=== PATIENT | male | born 1990 | race Caucasian/White ===

== ENCOUNTER → 2018-01-07 09:29 | Outpatient (CLI) | payer BC, SELFPAY | PROVIDERS: Family Provider Family Medicine; PCP Family Medicine; Visit Provider Emergency Medicine | DX: R07.9 Chest pain, unspecified (principal) | CPT/HCPCS: 93017 ==

== ENCOUNTER → 2018-09-23 13:31 | Outpatient (CLI) | payer BC, SELFPAY | PROVIDERS: PCP Family Medicine; Visit Provider Family Medicine | DX: G47.10 Hypersomnia, unspecified (principal); R06.83 Snoring; G47.30 Sleep apnea, unspecified | CPT/HCPCS: 95806 ==

== ENCOUNTER → 2019-06-26 07:40 | Outpatient (CLI) | payer BC, SELFPAY ==
--- NOTE | 2019-06-26 07:46 | US_ITS ---
PROCEDURE: US ABDOMEN LIMITED CLINICAL INDICATION: RUQ PAIN COMPARISON: No exams were available for comparison FINDINGS: PANCREAS: Unremarkable. No obvious mass or abnormal fluid collection. No ductal dilatation LIVER: No focal liver lesions demonstrated. Homogeneous echogenicity. No intrahepatic biliary ductal dilatation evident. There is appropriate direction of blood flow within a non dilated portal vein RIGHT KIDNEY: Unremarkable. Normal size and echogenicity. No hydronephrosis GALLBLADDER: No gallstones. There is questionably a small amount of sludge in the gallbladder. On some measurements the gallbladder wall appears mildly thickened measuring up to 4.9 millimeters. Radionuclide hepatobiliary imaging may be useful to further evaluate this patient. There is no pericholecystic fluid, or biliary dilatation. IMPRESSION: Small amount of sludge without stones. Mild gallbladder wall thickening. Dictated by: Edward Escalante 06/26/2019 08:41 Electronically signed by Edward Escalante in [place] 06/26/2019 08:41
== END ==
PROVIDERS: PCP Family Medicine; Visit Provider Family Medicine
DX: R10.11 Right upper quadrant pain (principal)
CPT/HCPCS: 76705

== ENCOUNTER → 2019-07-07 10:50 | Outpatient (CLI) | payer BC, SELFPAY ==
[2019-07-07 11:23] LABS: Basophils % 0.6 % (0.1-2.0); Eosinophils # 0.2 K/mm3 (0.0-0.4); Eosinophils % 3.6 % (0.1-12.0); Hematocrit 40.7 % (42.0-52.0); Hemoglobin 13.5 g/dL (14.1-18.0); Lymphocytes # 1.3 K/mm3 (0.7-4.5); Lymphocytes % 22.6 % (10-50); Mean Corpuscular HGB Conc 33.1 g/dL (31.8-35.4); Mean Corpuscular Hemoglobin 28.8 pg (27.0-31.2); Mean Corpuscular Volume 87.2 fl (80-94); Mean Platelet Volume 8.7 fl (7.4-10.4); Monocytes # 0.3 K/mm3 (0.1-1.0); Monocytes % 4.9 % (1.7-9.3); Neutrophils # 3.8 K/mm3 (1.8-7.8); Neutrophils % 68.3 % (37.0-80.0); Platelet Count 209 K/mm3 (142-424); Red Blood Count 4.67 M/mm3 (4.60-6.20); Red Cell Distribution Width 12.9 % (11.5-17.5); White Blood Count 5.6 K/mm3 (4.8-10.8)
[2019-07-07 12:13] LABS: Alanine Aminotransferase 19 U/L (12-78); Albumin/Globulin Ratio 1.5 (1.1-1.8); Alkaline Phosphatase 76 U/L (46-116); Amylase 45 U/L (25-115); Anion Gap 11.3 mEq/L (5-15); Aspartate Amino Transferase 12 U/L (15-37); Bilirubin,Total 0.4 mg/dL (0.2-1.0); Blood Urea Nitrogen 10 mg/dL (7-18); Calcium 8.9 mg/dL (8.5-10.1); Carbon Dioxide 30 mmol/L (21.0-32.0); Chloride 107 mmol/L (98-107); Creatinine,Serum 0.71 mg/dL (0.70-1.30); Estimated Glomerular Filt Rate 130 ml/min (>60); GFR (African American) 158 ML/MIN (>60); Globulin 2.7 gm/dl (1.3-3.2); Glucose 95 mg/dL (74-106); Lipase 199 u/L (73-393); Potassium 4.3 mmoL/L (3.5-5.1); Sodium 144 mmol/L (136-145); Total Protein,Serum 6.7 gm/dL (6.4-8.2)
== END ==
PROVIDERS: Visit Provider Surgery
DX: K82.9 Disease of gallbladder, unspecified (principal); K85.90 Acute pancreatitis without necrosis or infection, unspecified
CPT/HCPCS: 36415; 80053; 82150; 83690; 85025

== ENCOUNTER → 2019-08-06 10:29 | Outpatient (CLI) | payer BC, SELFPAY ==
[2019-08-06 11:08] LABS: Basophils # 0.1 K/mm3 (0-0.2); Basophils % 1.1 % (0.1-2.0); Eosinophils # 0.1 K/mm3 (0.0-0.4); Eosinophils % 2.2 % (0.1-12.0); Hematocrit 40.3 % (42.0-52.0); Hemoglobin 13.4 g/dL (14.1-18.0); Lymphocytes # 1.4 K/mm3 (0.7-4.5); Lymphocytes % 28.2 % (10-50); Mean Corpuscular HGB Conc 33.3 g/dL (31.8-35.4); Mean Corpuscular Hemoglobin 28.4 pg (27.0-31.2); Mean Corpuscular Volume 85.3 fl (80-94); Monocytes # 0.3 K/mm3 (0.1-1.0); Monocytes % 5.2 % (1.7-9.3); Neutrophils # 3.1 K/mm3 (1.8-7.8); Neutrophils % 63.4 % (37.0-80.0); Platelet Count 241 K/mm3 (142-424); Red Blood Count 4.73 M/mm3 (4.60-6.20); Red Cell Distribution Width 13.2 % (11.5-17.5)
[2019-08-06 13:15] LABS: Chloride 104 mmol/L (98-107); Potassium 4.1 mmoL/L (3.5-5.1); Sodium 140 mmol/L (136-145)
[2019-08-06 13:17] LABS: Alanine Aminotransferase 25 U/L (12-78); Aspartate Amino Transferase 23 U/L (17-59); Blood Urea Nitrogen 8 mg/dl (9-20); Estimated Glomerular Filt Rate 132 ml/min (>60); GFR (African American) 160 ML/MIN (>60)
[2019-08-06 13:18] LABS: Albumin Level 4.4 g/dl (3.5-5.0); Albumin/Globulin Ratio 1.8 (1.1-1.8); Alkaline Phosphatase 58 U/L (38-126); Anion Gap 12.1 mEq/L (5-15); Bilirubin,Total 0.8 mg/dl (0.2-1.3); Calcium 9.7 mg/dl (8.4-10.2); Carbon Dioxide 28 mmol/L (22.0-30.0); Globulin 2.5 g/dL (1.3-3.2); Glucose 97 mg/dl (74-100); Total Protein,Serum 6.9 g/dl (6.3-8.2)
[2019-08-06 14:06] LABS: C-Reactive Protein 1.3 mg/L (0-4)
[2019-08-08 10:30] LABS: Deamidated Gliadin Abs, IgA 7 units (0-19); Tissue Transglutaminase IgA Ab <2 U/mL (0-3); Tissue Transglutaminase IgG Ab <2 U/mL (0-5)
[2019-08-08 10:31] LABS: Deamidated Gliadin Abs, IgG 1 units (0-19); Endomysial IgA Antibody Negative (Negative)
[2019-08-08 13:58] LABS: Saccharomyces cerevisiae, IgA <20.0 Units (0.0-24.9); Saccharomyces cerevisiae, IgG <20.0 Units (0.0-24.9)
[2019-08-09 20:42] LABS: Reticulin IgA Antibody Negative titer (Neg:<1:2.5)
[2019-08-12 14:58] LABS: Fats, Neutral Normal (.); Fats, Total Normal (.)
[2019-08-13 15:56] LABS: Pancreatic Elastase, Fecal >500 (>200)
== END ==
PROVIDERS: Visit Provider Nurse Practitioner Family
DX: R19.4 Change in bowel habit (principal); R14.0 Abdominal distension (gaseous); R11.2 Nausea with vomiting, unspecified; R19.7 Diarrhea, unspecified; K59.00 Constipation, unspecified
CPT/HCPCS: 36415; 80053; 82656; 82705; 83516; 85025; 86140; 86255; 86256; 86671

== ENCOUNTER 2019-09-12 07:24 | Day surgery (SDC) | payer BC, SELFPAY ==
[2019-09-11 10:45] VITALS: BMI 25.1
[2019-09-12] VITALS (7 sets, daily range): BP systolic 88–137; BP diastolic 57–83; PULSE 54–87; RESP 16–18; TEMP 36.1–36.7; O2SAT 97–100
--- NOTE | 2019-09-12 08:32 | HMH.ANESCL ---
[facility] Anesthesia Checklist - Structural Data Admitted From: Home Planned Operative Procedure/s: egd,colonoscopy Consent for Planned Operative Procedure(s) Verified: Yes - Additional verifications Anesthesia Reactions: No Hx Blood Transfusions: No Blood Transfusion Reaction: No - Airway Assessment C-Spine Mobility Assessed: Yes TMJ Mobility Assessed: Yes Dentition: Good Dentition - Neurological Assessment Level of Consciousness: Awake, Alert, Appropriate - Anesthesia Plan Anesthesia Risk discussed: Yes Anesthesia Plan: Verified ASA Class: II Anesthesia Type: MAC [facility] History I have reviewed the patient's past medical history: Yes Medical History: Reports:: Asthma, Gastroesophageal Reflux Disease(GERD), Hyperlipidemia Denies:: Cancer, Diabetes Mellitus Type 1, Diabetes Mellitus Type 2, Internal Pacemaker, MRSA, Seizures *Have you ever received a pneumonia vaccine?: No *Have you received a flu vaccine this season?: No Other Medical History: Denies: Blood Transfusion Reaction Anesthesia experience/problems:: none Laterality Cases: Bilateral: Other Other Surgeries: Yes: Colonoscopy, Other. No: Pacemaker Amputation: No Fractures: No - *Social History Educational Level: Completed High School Smoking Status: Former smoker Tobacco Type: cigarettes #Yrs smoked (if former smoker): 12 Alcohol Intake: never Alcohol Intake Frequency:: a few times a week Substance Use Type: denies use *Occupational Status:: employed Housing: house Household Members: spouse *Travel in the last 8 weeks: None Family Hx:: Cancer, Coronary Artery Disease, Hypertension
--- NOTE | 2019-09-12 08:34 | HMH.PROC ---
[facility] Procedure Note Procedure Note:: Upper Endoscopy Procedure Report: Esophagogastroduodenoscopy with cold biopsies Endoscopost: Nestor Álvarez II, MD Referring Physician: Luis Nuno M.D. Date of Procedure: September 12, 2019 Equipment: Olympus GIF 180 standard upper endoscope Sedation: MAC sedation Indications: Mr. Vickers is a 28-year-old gentleman with chronic dyspepsia and irritable bowel syndrome. He had previously been followed by Dr. Gregory Davison. He had an upper endoscopy in January 2016. At that time he had LA classification grade C reflux esophagitis. He had a barium swallow/upper GI series that showed reflux. He was given proton pump inhibitor therapy and improved briefly but continued to have symptoms. The patient has worsened recently. 2 to 3 months ago, he began having a change in bowel habits with constipation/incomplete defecation. He has had bloating, gassiness, nausea, belching and moderate early satiety. He has had a loss of appetite. He did have an abnormal gallbladder HIDA scan with 0% ejection fraction and underwent cholecystectomy 2 to 3 months ago. The pathology showed chronic cholecystitis. This was done by Dr. Frankie Curtis. He has had persistent symptoms. His lab work showed no evidence of celiac disease or inflammatory bowel disease. He had borderline anemia (hemoglobin 13.4 and hematocrit 40.3). He has had loose bowel movements with some urgency. He was taking the MiraLAX and Citrucel somewhat irregularly. He has never had a colonoscopy. His maternal aunt had Crohn's disease and another maternal aunt had esophageal cancer. He describes the pain as a hunger burning pain with nausea. Procedure: Prior to the procedure, a history and physical exam was performed, and patient's medications and allergies were reviewed. The risks, benefits and alternatives of the sedation and procedure were discussed with the patient. All questions were answered and informed consent was obtained. The patient was brought to the procedure room. Patient identification and proposed procedure were verified by the physician and the nurse. The patient was placed in a left lateral decubitus position and the scope was passed under direct vision. Throughout the procedure, the patient's blood pressure, pulse, and oxygen saturations were monitored continuously. The upper GI endoscopy was accomplished without difficulty. The patient tolerated the procedure well. Findings: The scope was passed directly into the upper esophagus and advanced to the third portion of the duodenum. The post bulbar duodenum and duodenal bulb were normal with normal mucosa and conniventes. The scope was withdrawn through a normal duodenal bulb and pylorus into the stomach. There was some bile reflux with linear reactive gastropathy of the antrum. The remainder of the antrum, body and fundus of the stomach were grossly normal. Upon retroflexion there was no hiatal hernia. 2 biopsies were taken in the antrum and along the lesser curvature for histology to rule out gastritis and/or H pylori. The scope was then withdrawn into the esophagus. There was no evidence of reflux esophagitis or Resendez's. There were tertiary contractions and mild dysmotility. The remainder of the esophageal mucosa was normal. Impression: 1. Nonerosive GERD with mild esophageal dysmotility 2. Bile reflux with mild linear reactive gastropathy Plan: I will follow-up the biopsies. 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 We will discuss additional treatment options. I would continue the buspirone twice daily. He was unable to get [employer] (insurance). I would continue the fiber bowel regimen once or twice daily. I would consider adding additional promotility therapy. I will proceed with diagnostic colonoscopy.
--- NOTE | 2019-09-12 08:57 | P.PCN_ITS ---
[facility] Procedure Note Procedure Note:: Colonoscopy Procedure Report: Colonoscopy with cold biopsies Endoscopist: Nestor Álvarez II, MD Referring physician: Amando Dhillon MD Date of Procedure: September 12, 2019 Equipment: Olympus 180 variable stiffness pediatric colonoscope Sedation: MAC sedation Indication: Mr. Vickers is a 28-year-old gentleman with abdominal pain and dyspepsia. He has had abdominal pain especially burning/gnawing hunger pain with nausea. The patient also has had borderline anemia. He reports loose bowel movements with urgency. He has had bloating and gassiness. He states that 2 to 3 months ago he began having a change in his bowel habits with constipation/obstipation and incomplete defecation. The patient has had no rectal bleeding or significant weight loss. He reports no family history of colon cancer but his maternal aunt had Crohn's disease. This is his first colonoscopy for diagnostic purposes. Procedure: Prior to the procedure, a history and physical exam was performed, and patient's medications and allergies were reviewed. The risks, benefits and alternatives of the sedation and procedure were discussed with the patient. All questions were answered and informed consent was obtained. The patient was brought to the procedure room. Patient identification and proposed procedure were verified by the physician and the nurse. The patient was placed in a left lateral decubitus position and the scope was passed under direct vision. Throughout the procedure, the patient's blood pressure, pulse, and oxygen saturations were monitored continuously. The colonoscopy was accomplished without difficulty. The patient tolerated the procedure well. Findings: On digital rectal examination there was normal rectal tone. There were no external hemorrhoids. The colonoscope was introduced through the anal canal to the rectum and advanced to the cecum. The ileocecal valve and appendiceal pawan fice were identified. The scope was advanced a short distance into the ileum which appeared grossly normal. The scope was then withdrawn into the colon. The cecum, ascending, transverse, descending, sigmoid and rectum were grossly normal. Cold biopsies were obtained from the right colon to rule out microscopic colitis. There were no mucosal abnormalities identified. Upon retroflexion within the rectum there were grade 1-2 internal hemorrhoids.The preparation was excellent throughout with [place] Preparation Score of 9. The cecal time was 12 minutes. Impression: 1. Normal colonoscopy with intubation of the terminal ileum 2. Grade 1-2 internal hemorrhoids Plan: I would encourage a fiber bowel regimen on a long-term daily maintenance basis. I will follow-up the biopsies. We will discuss treatment options.
== END 2019-09-12 10:08 | disposition home or self-care (01) ==
LOC: OUTP 07:26
PROVIDERS: PCP Family Medicine; Visit Provider Internal Medicine Gastroenterology
PROC: 0DJ08ZZ Inspection of Upper Intestinal Tract, Via Natural or Artificial Opening Endoscopic (ICD-10-PCS; CPT 43235; principal; 2019-09-12 08:30)
DX: K64.0 First degree hemorrhoids (principal); R10.13 Epigastric pain; R10.84 Generalized abdominal pain; K59.09 Other constipation; R19.4 Change in bowel habit
CPT/HCPCS: 45380

== ENCOUNTER → 2020-10-04 08:45 | Outpatient (POV) | payer BC, SELFPAY | PROVIDERS: Visit Provider Nurse Practitioner Family | DX: Z00.00 Encounter for general adult medical examination without abnormal findings (principal) ==

== ENCOUNTER → 2021-03-22 10:54 | Outpatient (CLI) | payer BC, SELFPAY | PROVIDERS: PCP Family Medicine; Visit Provider Nurse Practitioner | DX: Z20.822 Contact with and (suspected) exposure to COVID-19 (principal) | CPT/HCPCS: C9803; U0003; U0005 ==

== ENCOUNTER → 2021-03-27 11:14 | Outpatient (CLI) | payer BC, OTHER, SELFPAY | PROVIDERS: PCP Family Medicine; Visit Provider Nurse Practitioner Family | DX: Z20.822 Contact with and (suspected) exposure to COVID-19 (principal) | CPT/HCPCS: C9803; U0003; U0005 ==

== ENCOUNTER → 2021-06-23 09:13 | Outpatient (CLI) | payer BC, SELFPAY ==
[2021-06-23 09:54] LABS: Basophils # 0.1 K/mm3 (0-0.2); Eosinophils # 0.2 K/mm3 (0.0-0.4); Eosinophils % 1.7 % (0.1-12.0); Hematocrit 42.7 % (42.0-52.0); Hemoglobin 14.2 g/dL (14.1-18.0); Lymphocytes # 1.6 K/mm3 (0.7-4.5); Lymphocytes % 17.6 % (10-50); Mean Corpuscular HGB Conc 33.3 g/dL (31.8-35.4); Mean Corpuscular Hemoglobin 29.6 pg (27.0-31.2); Mean Corpuscular Volume 88.9 fl (80-94); Mean Platelet Volume 8.8 fl (7.4-10.4); Monocytes # 0.5 K/mm3 (0.1-1.0); Monocytes % 5.6 % (1.7-9.3); Neutrophils # 6.5 K/mm3 (1.8-7.8); Platelet Count 255 K/mm3 (142-424); Red Blood Count 4.81 M/mm3 (4.60-6.20); Red Cell Distribution Width 13.8 % (11.5-17.5); White Blood Count 8.8 K/mm3 (4.8-10.8)
[2021-06-23 10:30] LABS: Alanine Aminotransferase 14 U/L (12-78); Albumin Level 4.7 g/dl (3.5-5.0); Alkaline Phosphatase 63 U/L (38-126); Anion Gap 11.1 mEq/L (5-15); Aspartate Amino Transferase 22 U/L (17-59); Bilirubin,Total 1.5 mg/dl (0.2-1.3); Blood Urea Nitrogen 15 mg/dl (9-20); Calcium 9.8 mg/dl (8.4-10.2); Carbon Dioxide 30 mmol/L (22.0-30.0); Chloride 102 mmol/L (98-107); Estimated Glomerular Filt Rate 112 ml/min (>60); GFR (African American) 136 ML/MIN (>60); Globulin 2.3 g/dL (1.3-3.2); Glucose 105 mg/dl (74-100); Potassium 4.1 mmoL/L (3.5-5.1); Sodium 139 mmol/L (136-145)
[2021-06-23 10:50] LABS: Free Thyroxine Index 2.5 ug/dL (5.93-13.13); Triiodothryronine (T3) Uptake 28 % (23.5-40.5)
[2021-06-23 11:03] LABS: Thyroid Stimulating Hormone 1.23 uIU/mL (0.465-4.68)
[2021-06-23 11:20] LABS: Vitamin B12 547 pg/mL (239-931)
[2021-06-23 11:29] LABS: Iron 143 ug/dL (49-181)
[2021-06-23 11:38] LABS: Total Iron Binding Capacity 375 ug/dL (261-462)
[2021-06-29 15:12] LABS: Testosterone, Total, LC/MS 389.2 ng/dL (264.0-916.0); Testosterone,Free 9.7 pg/mL (8.7-25.1)
[2021-06-30 22:07] LABS: 1,25 Dihydroxy Vitamin D 73 pg/mL (.); 1,25-Dihydroxy, Vitamin D-2 <10 pg/mL (.); 1,25-Dihydroxy, Vitamin D-3 73 pg/mL (.)
== END ==
LOC: LAB 09:13
PROVIDERS: PCP Internal Medicine Adolescent Medicine; Visit Provider Nurse Practitioner Psychiatric/Mental Health
DX: Z00.00 Encounter for general adult medical examination without abnormal findings (principal); R53.83 Other fatigue; Z79.899 Other long term (current) drug therapy
CPT/HCPCS: 36415; 80053; 82607; 82652; 83036; 83540; 83550; 84402; 84403; 84436; 84443; 84479; 85025

== ENCOUNTER → 2022-04-19 09:43 | Outpatient (CLI) | payer BC, SELFPAY ==
--- NOTE | 2022-04-19 09:51 | XR_ITS ---
FINAL REPORT CLINICAL HISTORY: RT SHOULDER PAIN since sunday FINDINGS: Right shoulder Three views were obtained. There is no acute fracture or dislocation. The joint spaces appear normal. No soft tissue abnormality is identified. IMPRESSION: No acute process. Reviewed, Interpreted and Dictated by Juaquin Valiente MD Transcribed by Jacqueline Love Authenticated and [facility]
== END ==
PROVIDERS: PCP Nurse Practitioner Family; Visit Provider Nurse Practitioner Family
DX: M25.511 Pain in right shoulder (principal)
CPT/HCPCS: 73030

== ENCOUNTER → 2022-05-23 08:19 | Outpatient (CLI) | payer BC, SELFPAY ==
--- NOTE | 2022-05-23 08:26 | MR_ITS ---
FINAL REPORT CLINICAL HISTORY: RIGHT SHOULDER PAIN UNSPECIFIED CHRONICITY. WEAKNESS IN ARM. LIMITED ROM. TIGHTNESS AND PRESSURE IN SHOULDER. FINDINGS: Multiplanar MR imaging of the right shoulder was performed without contrast.The tendons of the rotator cuff are intact without evidence of rotator cuff tear. There are mild degenerative changes of the acromioclavicular joint. A small amount of fluid is seen in the subacromial/subdeltoid bursa. There is abnormal morphology of the posterior labrum which is worrisome for labral tear. The long head of the biceps tendon is intact. No significant glenohumeral joint effusion is seen. There is no evidence of fracture or dislocation. The musculature is intact. There is no evidence of soft tissue mass. IMPRESSION: Abnormal morphology the posterior labrum which is worrisome for a labral tear. Mild degenerative change of the acromioclavicular joint. Reviewed, Interpreted and Dictated by Frankie Fisher III, MD Transcribed by Evita Valencia Authenticated and [facility]
== END ==
PROVIDERS: PCP Nurse Practitioner Family; Visit Provider Nurse Practitioner Family
DX: M25.511 Pain in right shoulder (principal)
CPT/HCPCS: 73221

== ENCOUNTER 2022-07-18 10:00 | Outpatient (RCR) | payer BC, SELFPAY ==
--- NOTE | 2022-04-25 13:48 | HMH.OTOPEV ---
OT Inpatient Evaluation Rehab OT Outpatient Eval Start: 04/25/22 13:28 Freq: Status: Active Protocol: Document 04/25/22 13:28 LOURDESKATHY (Rec: 04/25/22 13:47 ROBBYTAMIKO [id number]) E-signed By Maya Finn, OT Outpatient Therapy Subjective History Subjective History 31 year old male referred to skilled OP OT services for R shld pain. Patient stated to have pain in the back of shoulder ~2 weeks ago with intermittent sharp pains. Patient verbalize, It feels heavy. 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 Patient exhibit R shld winging of the scapula during AROM flex/abd/ er/ir with verbalizing pain in the infraspinatus muscle area . Chief Complaint Pain,Weakness Symptom Type Ache,Sharp,Stabbing Symptoms Relieved By Nothing Symptoms Aggravated By Physical Activity Prior Functional Limitations None Current Functional Limitations Reaching,Housework,Sleeping, Recreation Activity Symptom Description Intermittent Level of pain today (0-10) 1 Pain scale - at its best (0-10) 1 Pain scale - at its worst (0-10) 6 Shoulder/Elbow Eval Shoulder Objective Measurements Shoulder ROM Right Shoulder Abduction Active Range of 135 Motion (degrees) Shoulder Flexion Active Range of Motion 130 (degrees) Query Text: Shoulder External Rotation Active Range 40 of Motion (degrees) Shoulder Internal Rotation Active Range 50 of Motion (degrees) pain with active ROM shoulder exam right standard Shoulder MMT Shoulder Abduction Strength Grade 3+ Fair+ Shoulder Extension Strength Grade 3+ Fair+ Shoulder Flexion Strength Grade 3+ Fair+ Shoulder Horizontal Abduction Strength 3+ Fair+ Grade Shoulder Horizontal Adduction Strength 3+ Fair+ Grade Infraspinatus/Teres Minor Strength Grade 3+ Fair+ Shoulder External Rotation Strength 3+ Fair+ Grade Shoulder Internal Rotation Strength 3+ Fair+ Grade Shoulder Special Tests impingement sign present shoulder exam right standard Shoulder Empty Can (Supraspinatus) Test Positive Right Shoulder Dee-Michael Impingement Positive Right
== END 2022-07-18 10:05 | disposition home or self-care (01) ==
LOC: OT 10:00
PROVIDERS: PCP Internal Medicine Adolescent Medicine; Visit Provider Nurse Practitioner Family
DX: M25.511 Pain in right shoulder (principal)
CPT/HCPCS: 97010; 97014; 97110; 97140; 97164; 97165; 97530; G0283

== ENCOUNTER 2023-12-26 09:43 | Outpatient (CLI) | payer BC, SELFPAY ==
--- NOTE | 2023-12-26 09:49 | NM_ITS ---
FINAL REPORT TECHNIQUE: Sequential anterior images were obtained after the ingestion of 2 whole scrambled eggs, 1 piece of toast, and 1 cup of water radiolabeled with 0.53 mCi technetium 99M sulfur colloid. CLINICAL HISTORY: RECURRENT VOMITING COMPARISON: None FINDINGS: GASTRIC EMPTYING SCAN Static images show normal emptying of the stomach into the small bowel. Based on the time activity curve, the estimated half-emptying time is 83 minutes which is within normal limits. IMPRESSION: Normal gastric emptying study. Reviewed, Interpreted and Dictated by Raoul Rojas MD Transcribed by Viviana Hernadez Authenticated and . [facility]
[2023-12-26] MEDS: TC99M SULF.COLLOID;1 DOSE (UP TO 20 MCI) IV (10:30)
== END 2023-12-26 23:59 | disposition home or self-care (01) ==
LOC: RAD 09:43
PROVIDERS: PCP Internal Medicine Adolescent Medicine; Visit Provider Internal Medicine Adolescent Medicine
DX: R11.10 Vomiting, unspecified (principal)
CPT/HCPCS: 78264; A9541

== ENCOUNTER 2024-07-31 16:00 | Outpatient (RCR) | payer BC, SELFPAY ==
--- NOTE | 2024-07-20 15:42 | HMH.PTOPEV ---
PT Outpatient Evaluation Rehab PT Outpatient Evaluation Start: 07/20/24 15:23 Freq: Status: Active Protocol: Document 07/18/24 16:00 FRANNY (Rec: 07/20/24 15:41 FRANNY [id number]) E-signed By Jonathan Miller, PT Outpatient Therapy Subjective History Subjective History Patient is a 33 year old male presenting to outpatient PT with reports of chronic cervical and upper thoracic spine pain starting approx 2 years ago. Intermittent LUE radicular symptoms noted. Symptoms of insidious onset. No other comorbidities to report. B shoulder AROM WNL. New diagnosis of cancer in past 12 No months? Chief Complaint Pain,Stiff,Paresthesia Symptom Type Ache,Sharp,Numbness Symptoms Relieved By Rest/Positioning,Activity Symptoms Aggravated By Physical Activity,Lifting Prior Functional Limitations None Current Functional Limitations Reaching,Lifting,Housework, Driving,Recreation Activity Symptom Description Constant but Variable Level of pain today (0-10) 4 Pain scale - at its best (0-10) 2 Pain scale - at its worst (0-10) 6 Cervical Eval Palpation Cervical Muscles R Cervical Paraspinal,L Cervical Paraspinal,R Suboccipital,L Suboccipital,R Upper Trapezius,L Upper Trapezius Cervical/Thoracic Palpation Findings Tenderness Posture Head/C-Spine Posture Sitting Position C-Spine Flattened Head/C-Spine Posture Standing Position C-Spine Flattened Flexibility Deficits Upper Trapezius Muscle Length (R) Moderate Tightness,(L) Moderate Tightness Levaetor Scapulae Muscle Length (R) Moderate Tightness,(L) Moderate Tightness Pectoralis Minor Muscle Length (R) Moderate Tightness,(L) Moderate Tightness Passive Joint Mobility Cervical PIVM WNL: R OA L OA R AA L AA R C2/3 L C2/3 R C3/4 L C3/4 R C4/5 L C4/5 R C5/6 L C5/6 R C6/7 L C6/7 R C7/T1 L C7/T1 AROM Cervical Spine Extension Active Range of 48 Motion (degrees) Cervical Spine Flexion Active Range of 34 Motion (degrees) Cervical Spine Right Lateral Flexion 40 Active Range of Motion (degrees) Cervical Spine Left Lateral Flexion 45 Active Range of Motion (degrees) Cervical Spine Right Rotation Active 38 Range of Motion (degrees) Cervical Spine Left Rotation Active 35 Range of Motion (degrees) MMT Bilateral Deltoid (C5) 5 Normal Biceps Brachii Strength Grade 5 Normal Wrist Extension Strength Grade 5 Normal Triceps Brachii Strength Grade 5 Normal Wrist Flexion Strength Grade 5 Normal Extensor Pollicis Longus Strength Grade 5 Normal Finger Abduction Strength Grade 5 Normal Altered Sensation Upper extremity Dermatomes C6,C7,C8 Comment int NT Special Test C-Spine Foraminal Compression (Spurling) Positive Left Test C-Spine Foraminal Distraction Test Positive Neck Disability Index Neck Disability Index Section 1: Pain Intensity The pain is moderate at the moment Section 2: Personal Care (washing, I can look after myself dressing, etc.) normally without causing extra pain Section 3: Lifting I can lift heavy weights without extra pain Section 4: Reading I can hardly read at all because of severe pain in my neck Section 5: Headaches I have moderate headaches, which come infrequently Section 6: Concentration I can concentrate fully when I want to with slight difficulty Section 7: Work I can do as much work as I want to Section 8: Driving I can drive my car as long as I want with moderate pain in my neck Section 9: Sleeping I have no trouble sleeping Section 10: Recreation I am able to engage in all my recreation activities with some pain in NDI Score 12 Outpatient Therapy Assessment Impairments Problems/Impairmments Palpation Tenderness,Impaired Range of Motion,Impaired Driving,Impaired Lifting, Impaired Household Care, Impaired Work Activities, Impaired Desk/Computer Activities,Subjective C/O Pain Prognosis Rehab Potential Good Clinical Impression Consistent with Diagnosis Yes Short Term Goals Number of Weeks 2 Decrease Subjective C/O Pain Yes: 410 at worst Patient to be Ind w/ HEP Yes Fdc Goals Number of Weeks 4-6 Decreased Palpation Tenderness Yes: 1/4 Increase Range of Motion Yes: WNL Increase Ability to Drive/Ride in Car Yes Restore Ability to Lift Objects to Yes: 20 lbs without difficulty Shoulder Level Restore Ability to Lift Objects Overhead Yes: Improve Ability For Household Care Yes Improve Tolerance to Work Activities Yes Improve Neck Disability Index Score Yes: <10 Decrease Subjective C/O Pain Yes: 2/10 at worst Outpatient Therapy Plan of Care Treatment Plan May Include Therapeutic Exercise Including Home Yes Exercise Program Manual Therapy Techniques Yes Neuromuscular Re-education Yes Therapeutic Activities to Return to Yes Previous Functional/Work Level ADL/Self Care Education Yes Mechanical Traction Yes Dry Needling Yes Thermal Modalities Yes Electrical Stimulation Yes Ultrasound/Phonophoresis Yes Iontophoresis Yes Orthotics/Bracing/Splinting Yes Vasopneumatic Compression Pump Yes Massage Yes Eval/Re-Eval Yes Frequency Times per week 2-3 Duration Number of Weeks 4-6 Addendums This patient is a candidate for social No or vocational rehab? Patient/Guardian verbally acknowledges Yes understanding of treatment program and consents to further treatment? Patient/Guardian verbally acknowledges Yes understanding of diagnosis, prognosis and goals for treatment? Eval Complexity PT Charges 32432 - Moderate Complexity Shoulder/Elbow Eval Shoulder Objective Measurements Elbow Objective Measurements PHYSICIAN CERTIFICATION: I certify the specified therapy services for Goldie Vickers are required, authorized, and reviewed every 30 days.
== END 2024-07-31 23:59 | disposition home or self-care (01) ==
LOC: PT 16:00
PROVIDERS: PCP Internal Medicine Adolescent Medicine; Visit Provider Nurse Practitioner Family
DX: M54.2 Cervicalgia (principal)
CPT/HCPCS: 97014; 97110; 97140; 97163; 97530; G0283

== ENCOUNTER 2024-08-14 16:00 | Outpatient (RCR) | payer BC, SELFPAY ==
--- NOTE | 2024-08-12 17:29 | HMH.RHREAS ---
Rehab Reassessment Rehab OP Re-assessment Start: 08/05/24 16:55 Freq: Status: Active Protocol: Document 08/12/24 17:16 PHORoxieALTA (Rec: 08/12/24 17:28 PHORNE [id number]) E-signed By Fabian Manzano, PT Neck Disability Index Neck Disability Index Section 1: Pain Intensity The pain is very mild at moment Section 2: Personal Care (washing, I can look after myself dressing, etc.) normally without causing extra pain Section 3: Lifting I can lift heavy weights without extra pain Section 4: Reading I can read as much as I want with moderate pain in my neck Section 5: Headaches I have moderate headaches, which come infrequently Section 6: Concentration I can concentrate fully when I want to with slight difficulty Section 7: Work I can do as much work as I want to Section 8: Driving I can drive my car as long as I want with slight pain in my neck Section 9: Sleeping I have no trouble sleeping Section 10: Recreation I am able to engage in all my recreation activities with no neck pain NDI Score 7 Rehab Re-assessment Subjective Subjective Pt reports mild cervical spine pain upon arrival. Pt reports tightness in his neck muscles is his main issue. Pain at this time is 0/10, at worst is 5/10. He reports no numbness or tingling in hands for some time now. Objective Objective Notes NDI: 7 this date vs 12 on IE MMT: B UE grossly 5/5 throughout. Cervical AROM: Grossly WNL throughout except B SB 0-40 deg. TTP: 0/4 B cervical paraspinals and B UT. Assessment Progress Assessment Progressing as Expected Assessment Notes Pt continues to have increased pain and feelings of tight muscles on both side of the neck. He has show improvement in overall cervical ROM and has no radicular symptoms at this time. Skilled therapy is indicated to improve muscle tightness and reduce overall pain in the cervical spine area in order to return pt to PLOF. Patient goals met ST/2 LT/9 Plan Plan continue per initial POC. Frequency of Therapy 2 x/wk Duration of therapy 4 wks Time and Billing Re-Eval Time 12 Re-Eval Billing Units 1 Charge for PT reassessment? Yes PHYSICIAN CERTIFICATION: I certify the specified therapy services for Goldie [facility] are required, authorized, and reviewed every 30 days.
== END 2024-08-14 23:59 | disposition home or self-care (01) ==
LOC: PT 16:00
PROVIDERS: PCP Internal Medicine Adolescent Medicine; Visit Provider Nurse Practitioner Family
DX: M54.2 Cervicalgia (principal)
CPT/HCPCS: 97012; 97110; 97140; 97164

== ENCOUNTER 2024-10-31 07:49 | Outpatient (CLI) | payer BC, SELFPAY ==
--- NOTE | 2024-10-31 07:51 | CA_ITS ---
APPROVED REPORT EXAM: Comprehensive 2D, Doppler, and color-flow Echocardiogram Java Web Developer: Karen Rocha RVT Ht: 5 ft 9 in Wt: 165lbs BSA: 1.90 BP: 108/65 mmHg Indications: MURMUR,HLD,EX SMOKER Echo Enhancing Agent Indication: Rule out Shunt Agent(s) / Amount(s) Used: Agitated Saline 10 cc 2D Dimensions LA Volume 23.80 mL LA Volume Index 12.46 mL/m2 (M/F) 16-34 M-Mode Dimensions RVDd 2.21 cm (0.9-2.6) LA Diam 2.77 cm (1.9-4.0) LVDd 4.73 cm (3.5-5.7) LVDs 3.05 cm (3.5-5.7) IVSd 1.01 cm (0.6-1.1) PWd 0.94 cm (0.6-1.1) EF (Teich) 65.00% FS 35.50% EDV (Teich) 103.90 mL TAPSE 2.46 (<1.7) ESV (Teich) 36.40 mL LV Diastology E Decel Time 167 (160-240 msec) E/A Ratio 1.6 Aortic Valve DONALDO Index 1.54 cm2/m2 AoV Peak Gerardo. 128.0 (50-130 cm/s) AO Peak GR. 6.60 mmHg AO Mean GR. 4.30 (<5 mmHg) AO VTI 24.5 (18-25 cm) DONALDO (VTI) 3.01 (2.5-4.5 cm2) Mitral Valve MV E Max Gerardo. 82.0 (40-130 cm/s) MV A Velocity 50.0 (40-130 cm/s) E/A Ratio 1.66 MV PHT 49.0 ms Pulmonary Valve PV Peak Velocity 102.0 (50-150 cm/s) Tricuspid Valve TR P. Velocity 216.00 cm/s RAP Estimate 10.00 mmHg RVSP 28.60 mmHg Left Ventricle The left ventricle is normal size. The left ventricular systolic function is normal. The left ventricular ejection fraction is within the normal range. There is normal left ventricular wall thickness. There is normal LV segmental wall motion. LVEF is 55%. Right Ventricle The right ventricle is mildly dilated. The right ventricular systolic function is normal. Atria The left atrium size is normal. The right atrium size is normal. The interatrial septum appears aneurysmal. Agitated saline administration demonstrates presence of interatrial shunt. Aortic Valve The aortic valve opens well. There is no aortic valvular stenosis. No aortic regurgitation is present. Mitral Valve The mitral valve is normal in structure. No evidence of mitral valve stenosis. Trace mitral regurgitation. Tricuspid Valve Tricuspid valve is grossly normal in structure and function. Trace tricuspid regurgitation. There is insufficient TR jet to estimate RVSP. Pulmonic Valve The pulmonary valve is normal in structure. Trace pulmonic regurgitation. Great Vessels The aortic root is normal in size. IVC is normal in size and collapses >50% with inspiration. Pericardium There is no pericardial effusion. Other Information Study Quality: Fair Conclusion Normal biventricular systolic function. Mild RV dilation. The interatrial septum appears aneurysmal. Agitated saline administration demonstrates presence of interatrial shunt. In the setting of mild RV dilation and presence of interatrial shunt, further evaluation with BING, as well as cardiac MRI (shunt protocol), is suggested for evaluation of the shunt's location, sizing, and hemodynamic significance (Qp:Qs ratio). Electronically signed by : Rosemarie Agudelo MD 11/03/2024 22:27:12
== END 2024-10-31 23:59 | disposition home or self-care (01) ==
LOC: RT 07:49
PROVIDERS: PCP Internal Medicine Adolescent Medicine; Visit Provider Nurse Practitioner Family
DX: I25.3 Aneurysm of heart (principal); I51.7 Cardiomegaly; E78.5 Hyperlipidemia, unspecified; Z87.891 Personal history of nicotine dependence
CPT/HCPCS: 93306